=== PATIENT | male | born 1950 | race Two or more races ===

== ENCOUNTER 2025-02-19 08:47 | Inpatient (IN) | payer MEDICARE, OTHER ==
[~2025-02-19] VITALS: Ht 182.9 cm; Wt 65.8 kg
[2025-02-19 09:17] LABS: BASOPHILS # (AUTO) 0.1 K/uL (0.0-0.2); BASOPHILS % (AUTO) 0.7 % (0.0-2.0); EOSINOPHILS # (AUTO) 0.2 K/uL (0.0-0.7); HEMATOCRIT 36 % (39-51); HEMOGLOBIN 10.9 g/dL (13.5-17.5); LYMPHOCYTES # (AUTO) 2.7 K/uL (0.8-4.8); LYMPHOCYTES % (AUTO) 29.2 % (20.0-44.0); MEAN CORPUSCULAR HEMOGLOBIN 23 PG (26.0-33.0); MEAN CORPUSCULAR HGB CONC 31 g/dl (31.0-36.0); MEAN CORPUSCULAR VOLUME 75 fL (80-96); MONOCYTES # (AUTO) 0.7 K/uL (0.1-1.30); MONOCYTES % (AUTO) 7.5 % (2.0-12.0); NEUTROPHILS # (AUTO) 5.7 K/uL (1.8-8.9); NEUTROPHILS % (AUTO) 60.6 % (43.0-81.0); PLATELET COUNT (AUTO) 340 K/uL (150-450); RED BLOOD CELL COUNT(AUTO) 4.77 MIL/uL (4.5-6.0); WHITE BLOOD COUNT (AUTO) 9.4 K/uL (4.3-11.0)
[2025-02-19 09:25] LABS: CALCIUM, SERUM 9.6 mg/dL (8.5-10.1); CARBON DIOXIDE 25 mmol/L (21-32); CHLORIDE 108 mmol/L (98-107); CREATININE 1.1 mg/dL (0.6-1.3); GLUCOSE 244 mg/dL (74-106); POTASSIUM 3.4 mmol/L (3.5-5.1); SODIUM SERUM 144 mmol/L (136-145); UREA NITROGEN, BLOOD 22 mg/dL (7-18)
[2025-02-19] MEDS ORDERED: GLUCAGON,HUMAN RECOMBINANT 1 MG/VIAL VIAL ONE (09:29)
[2025-02-19] MEDS: GLUCAGON,HUMAN RECOMBINANT 1 MG/VIAL VIAL IV ONE (09:30)
[2025-02-19 09:31] LABS: ALANINE AMINOTRANSFERASE 14 U/L (12-78); ALBUMIN 4.1 g/dL (3.4-5.0); ALKALINE PHOSPHATASE 90 U/L (46-116); ASPARTATE AMINOTRANSFERASE 16 U/L (15-37); BILIRUBIN,DIRECT 0.1 mg/dL (0.0-0.2); BILIRUBIN,TOTAL 0.4 mg/dL (0.2-1.0); TOTAL PROTEIN, SERUM 8.9 g/dL (6.4-8.2)
[2025-02-19 09:36] LABS: PARTIAL THROMBOPLASTIN TIME 23.1 SEC (24.3-34.3); PROTHROMBIN TIME 10.6 SECS (9.2-11.1)
[2025-02-19 09:37] LABS: LACTIC ACID 2.5 mmol/L (0.4-2.0)
[2025-02-19 09:52] LABS: APPEARANCE,URINE CLEAR (CLEAR); BILIRUBIN,URINE NEGATIVE (NEGATIVE); BLOOD, URINE TRACE-INTA Ery/uL (NEGATIVE); COLOR,URINE YELLOW (YELLOW); KETONES,URINE NEGATIVE (NEGATIVE); LEUKOCYTE ESTERASE ,URINE NEGATIVE (NEGATIVE); NITRITE, URINE NEGATIVE (NEGATIVE); PROTEIN,URINE 3+ mg/dl (NEGATIVE); UGLUCOSE 3+ mg/dL (NEGATIVE)
[2025-02-19] MEDS ORDERED: CT SWABBABLE VALVE TRANS SET 1 EA INFUS.SET MC ONE (09:57)
[2025-02-19] MEDS ORDERED: IOHEXOL-300 100 ML VIAL IV ONE (09:57)
[2025-02-19] MEDS ORDERED: IV NS 0.9% 250 ML IV ONE (09:57)
[2025-02-19 09:58] LABS: ADD URINE CULTURE NO; BACTERIA,URINE Rare /HPF (None Seen); RBC,URINE 0-2 /HPF (0-2); SQUAMOUS EPITHELIAL CELL,UR None Seen /HPF (None Seen)
[2025-02-19] MEDS ORDERED: ALBUTEROL FS 2.5 MG/0.5 ML VIAL.NEB NEB PRN (10:00)
[2025-02-19] MEDS ORDERED: hydrALAZINE HCL IV 20 MG VIAL IV PRN (10:00)
[2025-02-19] MEDS ORDERED: ACETAMINOPHEN 325 MG TABLET PO PRN (10:00)
[2025-02-19] MEDS ORDERED: ONDANSETRON HCL/PF 4 MG/2 ML VIAL IVP PRN (10:00)
[2025-02-19] MEDS ORDERED: DEXTROSE 50%-WATER 50 ML DISP.SYRIN IV PRN (10:00)
[2025-02-19] MEDS ORDERED: MORPHINE SULFATE INJ 2 MG/ML DISP.SYRIN IV PRN (10:00)
[2025-02-19] MEDS: PIPERACILLIN /TAZOBACTAM 3.375 G in IV D5W 50 ML IV ONE (10:10)
[2025-02-19] MEDS: IV NS 0.9% 1,000 ML BAG IV ONE (10:30)
[2025-02-19] MEDS ORDERED: LATA7.5D EACHEYE (10:48)
[2025-02-19] MEDS ORDERED: ASPI-1169 PO (10:48)
[2025-02-19] MEDS ORDERED: ACET325T53 PO ×2 (10:48)
[2025-02-19] MEDS ORDERED: FAMO20TA8 PO (10:48)
[2025-02-19] MEDS ORDERED: METF-440 PO (10:48)
[2025-02-19] MEDS ORDERED: CYAN25003 PO (10:48)
[2025-02-19] MEDS ORDERED: DOCU100C36 PO (10:48)
[2025-02-19] MEDS ORDERED: CARV3.122 PO (10:48)
[2025-02-19] MEDS ORDERED: PANT40TA2 PO (10:48)
[2025-02-19] MEDS ORDERED: FERR325T6 PO (10:48)
[2025-02-19] MEDS ORDERED: EMPA10TA PO (10:48)
[2025-02-19] MEDS ORDERED: MULT-213 PO (10:48)
[2025-02-19] MEDS ORDERED: BISA10SU11 RC (10:48)
[2025-02-19] MEDS ORDERED: *INS REG3 SQ (10:48)
[2025-02-19] MEDS ORDERED: CHOL200010 PO (10:48)
[2025-02-19] MEDS ORDERED: MAGN400O6 PO (10:48)
[2025-02-19] MEDS ORDERED: ASCO500T10 PO (10:48)
[2025-02-19] MEDS ORDERED: MINE133E RC (10:48)
[2025-02-19] MEDS ORDERED: ATOR40TA GT (10:48)
[2025-02-19] MEDS ORDERED: CLOP75TA15 PO (10:48)
[2025-02-19 11:24] LABS: ABG BASE EXCESS -3.2 mmol/L (-2.0-3.0); ABG OXYGEN SATURATION 99.1 % (94.0-98.0); ABG PCO2 37.9 mmHg (35.0-48.0); ABG PH 7.374 (7.350-7.450); ABG PO2 194.1 mmHg (83.0-108.0); ABG TOTAL HEMOGLOBIN 10.2 G/dL (13.5-17.5); COHb 0.3 % (0.5-1.5); MetHb 0.1 % (0.0-1.5); O2Hb 98.7 % (94.0-97.0); PEEP,BG 5 cm H2O; SITE, ABG RIGHT RADIAL; VT, ABG 500 mL
[2025-02-19] MEDS: VANCOMYCIN HCL 1.25 GM in IV D5W 250 ML IV ONE (11:30)
[2025-02-19] MEDS: CEFEPIME 2 GM in IV D5W 100 ML IV SCH (11:30)
[2025-02-19] MEDS: IV NS 0.9% 1,000 ML IV SCH (11:31)
[2025-02-19 12:00] VITALS: BP 154/95; TEMP 98.6; O2SAT 100
[2025-02-19] MEDS ORDERED: IPRATROPIUM/ALBUTEROL INHALER IH SCH (12:00)
[2025-02-19] MEDS: BLOOD SUGAR DIAGNOSTIC 1 EACH STRIP IN SCH (12:16)
[2025-02-19] MEDS: INSULIN REGULAR, HUMAN 100 UNIT/ML 3 ML VIAL SQ PRN (12:18)
[2025-02-19 13:00] VITALS: BP 188/100; O2SAT 97
[2025-02-19] MEDS: IPRATROPIUM NEB FS 0.5 MG/2.5 ML AMPUL.NEB IH SCH (13:36)
[2025-02-19] MEDS: ALBUTEROL FS 2.5 MG/0.5 ML VIAL.NEB NEB SCH (13:36)
[2025-02-19 14:00] VITALS: BP 196/107; O2SAT 97
[2025-02-19 15:00] VITALS: BP 191/105; O2SAT 99
[2025-02-19] MEDS ORDERED: IV NS 0.9% 250 ML IV PRN (15:00)
[2025-02-19] MEDS: MORPHINE SULFATE PF DRIP 100 MG in IV D5W 96 ML IV PRN (15:04)
[2025-02-19 16:00] VITALS: BP 186/98; TEMP 97.9; O2SAT 82
[2025-02-19] MEDS: LORAZEPAM INJ 2 MG/ML VIAL IV PRN (16:30)
[2025-02-19] MEDS ORDERED: DOCUSATE SODIUM LIQ 100 MG/10 ML UDC PO SCH (17:00)
[2025-02-19] MEDS ORDERED: HEPARIN SODIUM, PORCINE 5000 UNITS/1 ML VIAL SQ SCH (21:00)
[2025-02-19] MEDS ORDERED: VANCOMYCIN 750 MG in IV D5W 250 ML IV SCH (23:00)
[2025-02-20] MEDS ORDERED: POLYETHYLENE GLYCOL 3350 17 GM POWD.PACK PO SCH (09:00)
== END 2025-02-19 16:35 | DRG 871 ==
LOC: ER 08:56 → ICU 10:58
PROVIDERS: ADMIT Internal Medicine; ATTEND Internal Medicine
PROC: 5A1935Z Respiratory Ventilation, Less than 24 Consecutive Hours (ICD-10-PCS; principal; 2025-02-19)
PROC: 0BH18EZ Insertion of Endotracheal Airway into Trachea, Via Natural or Artificial Opening Endoscopic (ICD-10-PCS; 2025-02-19)
DX: A41.9 Sepsis, unspecified organism (principal); G92.8 Other toxic encephalopathy; I61.5 Nontraumatic intracerebral hemorrhage, intraventricular; J69.0 Pneumonitis due to inhalation of food and vomit; J96.01 Acute respiratory failure with hypoxia; G93.5 Compression of brain; G91.9 Hydrocephalus, unspecified; Z51.5 Encounter for palliative care; R65.20 Severe sepsis without septic shock; E11.9 Type 2 diabetes mellitus without complications; E78.5 Hyperlipidemia, unspecified; E87.6 Hypokalemia; G30.9 Alzheimer's disease, unspecified; Z66 Do not resuscitate; Z79.4 Long term (current) use of insulin; Z79.84 Long term (current) use of oral hypoglycemic drugs; Z86.73 Personal history of transient ischemic attack (TIA), and cerebral infarction without residual deficits; I10 Essential (primary) hypertension; F02.C0 Dementia in other diseases classified elsewhere, severe, without behavioral disturbance, psychotic disturbance, mood disturbance, and anxiety; F32.A Depression, unspecified; F41.9 Anxiety disorder, unspecified
CPT/HCPCS: 36415; 36600; 70450-TC; 71045-TC; 71260-TC; 80048-TC; 80076-TC; 81001; 82803-TC; 82962-TC; 83605-TC; 83880; 84484-TC; 85025-TC; 85730-TC; 87040-TC; 87081-TC; 87086-TC; 94002-TC; 94799-TC; 99082-TC; A4223; G0378; J0692; J1610; J1815; J2060; J2274; J2543; J3371; J7030; J7050; J7060; Q9967